=== PATIENT | female | born 1950 | race Caucasian/White ===

== ENCOUNTER 2023-12-02 11:12 | Day surgery (SDC) | payer OTHER, SELFPAY ==
--- NOTE | 2023-10-27 12:58 | CM ---
Addendum entered by Karyna Carr 10/27/23 14:43:
Call received from [id number], Camelia. She states that patient is very sedentary and isn't active. She confirmed that patient will come to their home for a week. Patient will have support from her son, [id number] and grandchildren but
will likely benefit from VN services.
Original Note:
Patient is scheduled for an elective L THR on 12/02/23. Spoke with patient prior to surgery via telephone. Introduced role of Orthopedic Navigator. Patient reports that she lives alone in a one story home. She currently functions independently. She
has no DME and has never had VN services. PCP is Dr. Leida Cisse.
Discussed orthopedic program and post surgical plans. Reviewed anticipated length of stay and that goal is for her to return home at discharge. Also reviewed outpatient PT. Patient is in agreement with tentative plan and will be going to her son's
home for a week (home is two stories with three steps to enter. She will have a first floor set up). She will go directly to outpatient PT at [facility].
Plan: Orthopedic Navigator will remain available to assist with the care of patient and will reassess discharge needs after surgery.
[2023-11-07 14:20] VITALS: BMI 22.0
[2023-11-08 09:18] LABS: Glycohemoglobin (HgbA1c) 5.3 % (4.0-5.6)
[2023-12-02] VITALS (16 sets, daily range): BP systolic 109–144; BP diastolic 39–98; BMI 22.0
[2023-12-02] MEDS: NORMOSOL-R 1000 IV ×2 (11:50→20:14)
[2023-12-02] MEDS: CELEBREX 200 MG PO (11:51)
[2023-12-02] MEDS: TYLENOL 650 MG PO (11:51)
[2023-12-02] MEDS: BACTROBAN NASAL 1 GRAM NASAL (12:13)
--- NOTE | 2023-12-02 15:34 | OR.RPT ---
Addendum entered and electronically signed by Cyrus Wang MD 12/02/23 15:42:
36 mm + 3 ceramic head
Original Note:
Operative Report
Operative Report
Anesthesia Type:
General
Operative Indications:
Left hip DJD
Operative Findings :
Same
Complications:
None
Implants:
You echo Microplasty size 10 femoral stem, +3 ceramic head, size 50 G7 acetabular cup, 25 mm and 20 mm acetabular screws
Procedure and Technique:
Left anterior total hip arthroplasty
INDICATIONS FOR PROCEDURE:
73-year-old female seen in office following failure of conservative treatment for left hip DJD. She had previously trialed and failed activity modification, anti-inflammatory medications, physical therapy. Her left hip pain was interfering with
actives of daily living. We discussed continued conservative treatment versus surgical intervention in the form of left total hip arthroplasty. We discussed risks benefits and alternatives. Discussed the usual expected perioperative postoperative
course. After discussion written informed consent was obtained for left total hip arthroplasty.
OPERATIVE PROCEDURE:
Patient was seen identified in the preoperative holding area. Operative extremities marked. All questions were addressed. She was taken the operating room where general anesthesia was administered. She was placed supine on a radiolucent or
table. We did confirm appropriate fluoroscopic images were able to be obtained prior to prepping. Operative extremity was then prepped and draped in normal sterile fashion. Preoperative antibiotics were addressed. We did give 1 g of TXA prior to
incision. Operative extremity was confirmed after timeout was performed. Standard Franks-Hinojosa approach was performed. All neurovascular structures were identified and protected. Anterior circumflex vessels were coagulated with electrocautery.
A T capsulectomy was performed. A napkin ring cut was performed and the femoral head was removed and sized. Attention was turned to the acetabulum where labral and soft tissue remnants were removed. Stepwise reaming was performed. Appropriately
sized acetabular cup was then impacted. Additional fixation was achieved with 2 acetabular screws appropriate size. Attention was then turned to the femur where capsular releases were performed in the left femoral neck was elevated anteriorly.
Stepwise broaching was performed to a size 10. Broach was confirmed to be within the femoral canal on fluoroscopic guidance. The trialing was performed and a +3 head was chosen to be the most stable in size. Trial components were removed and
final femoral stem was placed with final ceramic head. Hip was then taken through range of motion and found to be stable. Wound was then copiously irrigated with normal saline solution. Betadine solution was also used. 500 mg of vancomycin
powder was then placed in the wound. Wound was closed in layered fashion utilizing 0 Vicryl in a running locking fashion for the deep fascial layer. 2-0 Vicryl for subcutaneous layer and vinnie for skin. Aquacel dressing was placed. 1 g TXA was
then given and anesthesia was reversed. Patient was taken to PACU in stable condition. Fluoroscopic images to confirm appropriate position of the implants. Postoperative plans will include weightbearing to patient's tolerance operative extremity.
Will recommend aspirin 325 mg daily for DVT prophylaxis. Plan to see patient back 2 weeks postop.
Disposition:
PACU stable condition
--- NOTE | 2023-12-02 16:17 | SUR.PHASEI ---
1600: Derm made aware of Pt. Sinus Tachycardia, pt. not endorsing any pain at this time, denies chest pain, fluttering of the heart, light headedness or anyother associated symptom. MD request to keep eyes on it and make aware of any further
changes
--- NOTE | 2023-12-02 17:57 | CON.HOSP ---
Family Physician
-
Family Physician: Leida Cisse
Chief Complaint
-
Sinus Tachy
History of Present Illness
73F Asthma Generalized Anxiety Cervical Spine fusion OA Left Hip DJD presented for elective left hip replacement due to failed conservative treatment, significant interference with activities of daily living. Hospitalist consulted due to sinus
tachycardia noted post-op high 140s since improved to low 120s, blood pressure stable. No acute distress. Stable respiratory status on room air. Awake Alert Conversant Coherent. Otherwise appears comfortable Denied chest pain palpitations.
Notably patient was also sinus tachy 120s prior to start of procedure. Patient also relates a remote hx of DVT treated with Eliquis since discontinued.
Medical History
Past Medical History
Past Medical History: Reports Other (as above)
Past Surgical History: Reports Other (as isela)
Social History
Tobacco: Non-smoker
Alcohol: None
Drug: None
Allergies / Home Medications
Allergies reflects when Allergies were last updated in [facility].
Home Medications with original date entered in [facility]
Allergy/Medication List:
Allergies
Allergy/AdvReac Type Severity Reaction Status Date / Time
No Known Allergies Allergy Verified 11/26/23 09:06
Home Medications
Bifidobacterium infantis 4 mg capsule (Align) 4 mg PO DAILY 10/30/17
albuterol sulfate 90 mcg/actuation aerosol inhaler 2 puff inhalation R QID PRN sob 10/30/17
fluticasone furoate 200 mcg-vilanterol 25 mcg/dose inhalation powder (Breo Ellipta) 1 ea inhalation DAILY 10/30/17
fluticasone propionate 50 mcg/actuation nasal spray,suspension 2 spray intranasal DAILYPRN PRN allergies 10/30/17
tramadol 50 mg tablet 50 mg PO QID 10/30/17
fexofenadine-pseudoephedrine ER 180 mg-240 mg tablet,ext.release 24 hr (Tereza-D 24 Hour) 1 ea PO QPM 05/03/19
dextromethorphan-guaifenesin 30 mg-600 mg tablet extended caoqedn33 hr (Mucinex DM) 1 ea PO DAILY 11/02/21
pantoprazole 40 mg tablet,delayed release 40 mg PO QPM 11/02/21
azelastine 137 mcg (0.1 %) nasal spray 2 spray intranasal DAILY 11/26/23
fluoxetine 40 mg capsule 40 mg PO DAILY 11/26/23
furosemide 20 mg tablet 20 mg PO DAILY 11/26/23
gabapentin 400 mg capsule 400 mg PO HS 11/26/23
tramadol 200 mg tablet,extended release 24 hr 200 mg PO PRN PRN pain 11/26/23
Review of Systems
-
A 12 point Review of Systems was completed except as noted: Yes
Constitutional: Reports Other (As below)
Physical Exam
Vital Signs
Vital Signs
Temp Pulse Resp BP Pulse Ox
98.3 F 133 20 134/98 99
12/02/23 15:55 12/02/23 16:45 12/02/23 16:45 12/02/23 16:45 12/02/23 16:45
Physical Exam
General: Other (As below)
Impression / Plan
-
ROS
General: Denies fever chills night sweats unexpected weight loss
Neuro: Denies seizure shaking loss of consciousness dizziness vertigo
Psych: denies depression hallucinations confusion manic episodes
Endocrine: Denies polyuria polydipsia polyphagia heat/cold intolerance
HEENT: Denies blindness visual disturbances epistaxis
Pulmonary: denies coughing hemoptysis sneezing sob dyspnea on exertion
Cardiovascular: denies chest pain palpitations leg swelling
Hematology: denies signs symptoms of anemia easy bruising/bleeding
Gastrointestinal: denies nausea vomiting diarrhea constipation hematemesis hematochezia melena
Genito-Urinary: denies retention incontinence dysuria
Musculoskeletal: denies joint pain weakness
Dermatology: denies rash laceration bruising
Physical Exam
General: No pallor, cyanosis, or jaundice.
HEENT: Throat clear. PERRLA Normocephalic atraumatic, pale palpebral conjunctiva
NECK: Supple. No JVD Carotid Bruits
RESPIRATORY: Lungs clear to auscultation. No crackles wheezes stridor
CVS: S1, S2 normal. RRR. No murmur, rub or gallop.
ABDOMEN: Soft, non-tender. No distension. BS+/normal.
EXTREMITIES: No peripheral cyanosis or edema. no calf tenderness
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
IMPRESSION:
73F Asthma Generalized Anxiety Cervical Spine fusion OA Left Hip DJD presented for elective left hip replacement due to failed conservative treatment, significant interference with activities of daily living. Hospitalist consulted due to sinus
tachycardia noted post-op high 140s since improved to low 120s, blood pressure stable. No acute distress. Stable respiratory status on room air. Awake Alert Conversant Coherent. Otherwise appears comfortable Denied chest pain palpitations.
Notably patient was also sinus tachy 120s prior to start of procedure. Patient also relates a remote hx of DVT treated with Eliquis since discontinued.
PLAN:
#Sinus Tachycardia
monitor on telemetry
repeat EKG in AM
IVF bolus 500 cc once, possible tachycardia d/t hypovolemia
start metoprolol 12.5 mg BID w/ holding parameters
Iv Lopressor 5 mg Q6hprn persistent HR>120s
Check CBC, type and screen in case significant anemia
Transfuse if Hgb<8
TSH reflex T4
#Elevated D-Dimer possibly 2/2 to surgery as oppose to VTE
stable respiratory status on room air, no significant calf tenderness noted
Check CT chest PE study and Venous Duplex (expedite CT study if patient develops SOB, chest pain, increasing Oxygen requirement)
cont ASA DVT ppx as per primary ortho for now
#Asthma
cont home prn albuterol
home Breo Ellipta converted to equivalent as per primary
#Lt Hip DJD s/p arthroplasty 12/01
post-op mgmt, pain control, as per primary ortho except scheduled Tylenol discontinued d/t severe transaminitis possibly related to surgery/anesthesia
#severe transaminitis possibly related to surgery/anesthesia
Trend LFTs
avoid/minimize use hepatotoxic agents
Tylenol discontinued as above
#Troponin elevation likely non-NH related
chest pain free
Initial troponin 0.066, trend to peak
#GERD
cont PPI
dvt ppx ASA as primary ortho
gi ppx protonix
Will continue to follow
I spent a total of 75 minutes with the patient or on the floor. More than 50% of this time involved counseling and coordination of care.
[2023-12-02] MEDS: NSS 500 IV (18:56)
[2023-12-02 19:09] LABS: INR 1.33; PT 16.3 Sec (11.4-14.6)
[2023-12-02 19:10] LABS: ALT (SGPT) 451 U/L (0-35); APTT 30.8 Sec (23.4-35.0); Albumin 3.2 g/dl (3.5-5.0); Alkaline Phosphatase 117 U/L (38-126); Blood Urea Nitrogen 11 mg/dl (7-17); Calcium 7.6 mg/dl (8.4-10.2); Carbon Dioxide 24 mmol/L (22-30); Chloride 105 mmol/L (98-107); Estimated Creatinine Clearance 69 ml/min; Glucose 134 mg/dl (70-99); Magnesium 2.1 mg/dl (1.6-2.3); Phosphorus 3.7 mg/dl (2.5-4.5); Potassium 4.7 mmol/L (3.5-5.1); Sodium 134 mmol/L (135-145); Total Protein 5.2 g/dl (6.3-8.2); eGFR > 60.00
[2023-12-02 19:14] LABS: Hematocrit 33.5 % (37.0-47.0); Hemoglobin 11.3 g/dL (12.0-16.0); Mean Corp Hgb Conc. 33.7 g/dL (33.0-37.0); Mean Corpuscular Hgb 31.8 pg (27.0-31.0); Mean Corpuscular Volume 94.4 fL (81.0-99.0); Mean Platelet Volume 10.5 fL (7.4-10.4); Platelet Count 131 10^3/uL (130-400); Red Blood Cell Count 3.55 10^6/uL (4.20-5.40); Red Cell Dist. Width 11.9 % (11.5-14.5); White Blood Cell Count 6.7 10^3/uL (4.8-10.8)
[2023-12-02] MEDS: ULTRAM PO ×2 (19:14)
--- NOTE | 2023-12-02 19:20 | PTCARENOTE ---
Received pt. to 2104 from PACU and placed on tele. Tachy around 110s, denies chest pain, SOB, nausea, or pain. Even and unlabored breathing on RA, VSS, L hip aquacell intact with scant serosanguineous drainage present, pulses strong bilaterally,
good ROM, denies numbness or tingling. Critical AST and troponin reported to Dr. Zaman via TT. Pt and son oriented to room and unit policies, bed locked and in lowest position, side rails in place, call light within reach, questions/concerns
addressed at time of assessment. Will continue to monitor.
[2023-12-02 19:21] LABS: AST (SGOT) 1242 U/L (14-36)
[2023-12-02 19:23] LABS: Troponin I 0.066 ng/ml
[2023-12-02 19:39] LABS: TSH Reflex To Free T4 2.03 uIU/ml (0.47-4.68)
[2023-12-02] MEDS: COLACE 100 MG PO (20:09)
[2023-12-02] MEDS: SENOKOT 17.2 MG PO (20:09)
[2023-12-02] MEDS: ASPIRIN 325 MG PO (20:10)
[2023-12-02] MEDS: PROTONIX 40 MG PO (20:10)
[2023-12-02] MEDS: LOPRESSOR 12.5 MG PO (20:10)
[2023-12-02] MEDS: ANCEF 5 IV (20:10)
[2023-12-02] MEDS: ULTRAM 50 MG PO (20:15)
[2023-12-02] MEDS: DECADRON 4 MG PO (20:15)
[2023-12-02] MEDS: TORADOL 10 MG IV (20:16)
--- NOTE | 2023-12-02 21:12 | W.PN.UPDATE ---
Update Note
Progress Note Update
In lieu of severe transaminitis/liver dysfunction
per discussion with pharmacy
-aspirin discontinued in favor of heparin dvt ppx
-home prozac cut in half to 20 mg instead of 40 daily
[2023-12-02] MEDS: SYMBICORT 160/4.5 MCG INHALER 2 PUFF INH (21:23)
[2023-12-02] MEDS: BACTROBAN 2% OINTMENT 1 APPLIC NASAL (22:05)
[2023-12-02] MEDS: NEURONTIN 400 MG PO (22:06)
--- NOTE | 2023-12-02 22:30 | PTCARENOTE ---
Noted worsening erythema and patch of eccymosis to L inner thigh. Pt. states hx of blood clot in L thigh 5 years ago. US ordered, called US personnel and they stated testing will take place in AM. Dr. Zaman made aware, okay to wait until AM as long
as respiratory status is stable. Will monitor.
[2023-12-02] MEDS: HEPARIN 5000 UNITS SC (23:26)
[2023-12-03] VITALS (9 sets, daily range): BP systolic 92–128; BP diastolic 43–70; PULSE 82–104; O2SAT 97–98
[2023-12-03] MEDS: ANCEF 5 IV (03:34)
--- NOTE | 2023-12-03 07:16 | W.PN.HOSP.TC ---
Today's Communication/Plan
-
Pain Control
PT/OT
Cardio eval
Metoprolol w/ holding parameters
Post-op mgmt as per primary Ortho
Assessment / Plan
Assessment / Plan
Physical Exam
General: No pallor, cyanosis, or jaundice.
HEENT: Throat clear. PERRLA Normocephalic atraumatic, pale palpebral conjunctiva
NECK: Supple. No JVD Carotid Bruits
RESPIRATORY: Lungs clear to auscultation. No crackles wheezes stridor
CVS: S1, S2 normal. RRR. No murmur, rub or gallop.
ABDOMEN: Soft, non-tender. No distension. BS+/normal.
EXTREMITIES: No peripheral cyanosis or edema. no calf tenderness
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
IMPRESSION:
73F Asthma Generalized Anxiety Cervical Spine fusion OA Left Hip DJD presented for elective left hip replacement due to failed conservative treatment, significant interference with activities of daily living. Hospitalist consulted due to sinus
tachycardia noted post-op high 140s since improved to low 120s, blood pressure stable. No acute distress. Stable respiratory status on room air. Awake Alert Conversant Coherent. Otherwise appears comfortable Denied chest pain palpitations.
Notably patient was also sinus tachy 120s prior to start of procedure. Patient also relates a remote hx of DVT treated with Eliquis since discontinued.
PLAN:
#Sinus Tachycardia
since improved
monitor on telemetry
repeat AM EKG 12/02 appreciated NSR
Metoprolol 12.5 daily XL w/ holding parameters
Iv Lopressor 5 mg Q6hprn persistent HR>120s
TSH wnl
#Elevated D-Dimer likely 2/2 to surgery as oppose to VTE
CT chest Venous Duplex neg PE/DVT
#Asthma
cont home prn albuterol
home Breo Ellipta converted to equivalent as per primary
#Lt Hip DJD s/p arthroplasty 12/01
post-op mgmt, pain control, as per primary ortho
#severe transaminitis possibly related to surgery/anesthesia
Trend LFTs improving
avoid/minimize use hepatotoxic agents
Scheduled Tylenol discontinued
#Troponin elevation suspect non-ID related
chest pain free
Initial troponin 0.066, trended to peak 1.180 since trended down
Agree Cardio eval
#GERD
cont PPI
PT/OT home health
dvt ppx Eliquis 2.5 mg BID as primary ortho
gi ppx protonix
Will continue to follow
I spent a total of 55 minutes with the patient or on the floor. More than 50% of this time involved counseling and coordination of care.
Anticipated Discharge: Within 24 hours
Subjective/Interval History
-
Date of Service: December 03, 2023
Seen and examined at bedside in no acute distress sitting up comfortably in chair. Reports overall feeling well. Son present during evaluation.
Objective Data
-
Labs:
Laboratory Results
12/02/23 12/03/23
18:48 06:00
WBC 6.7 Pending
Hgb 11.3 L Pending
Hct 33.5 L Pending
Plt Count 131 Pending
PT 16.3 H
INR 1.33
APTT 30.8
Sodium Pending
Potassium Pending
Chloride Pending
Carbon Dioxide Pending
BUN Pending
Creatinine Pending
Glucose Pending
Calcium Pending
Total Bilirubin Pending
AST 1242 H* Pending
ALT Pending
Alkaline Phosphatase Pending
Vital Signs:
Vital Signs
Temp Pulse Resp BP Pulse Ox
97.5 F 86 16 112/70 93
12/03/23 03:05 12/03/23 03:05 12/03/23 03:05 12/03/23 03:05 12/03/23 03:05
I&O
12/02/23 12/03/23 12/04/23
06:59 06:59 06:59
Intake Total 2480 / 2480
Output Total 1400 / 1400
Balance 1080 / 1080
[2023-12-03] MEDS: SYMBICORT 160/4.5 MCG INHALER 2 PUFF INH ×2 (08:28→20:41)
--- NOTE | 2023-12-03 08:37 | W.PN.ORTHO ---
Addendum entered and electronically signed by Cyrus Wang MD 12/03/23 09:11:
Entered in error. Wrong patient.
Original Note:
Today's Communication / Plan
-
73 yo F POD 1 s.p ORIF R periprosthetic humerus fracture. Block appears to still be working and unable to accurately assess distal motor and sensation function
NWB RUE in sling
PT/OT eval
Will see again to reasses distal nerve function particularly radial nerve
Can hopefully plan for discharge later today
Subjective
.
.:
Patient resting comfortably in bed this morning. Reports no pain at all. She reports no sensation and states her arm and hand feel heavy.
Vital Signs and Labs
.
Vital Signs and Labs:
Temp Pulse Resp BP Pulse Ox
98.8 F 95 16 110/43 99
12/03/23 07:20 12/03/23 08:30 12/03/23 08:30 12/03/23 07:20 12/03/23 08:30
PT 16.3 Sec (11.4-14.6) H 12/02/23 18:48
INR 1.33 12/02/23 18:48
Physical Exam
-
MSK RUE
Dressing with minimal drainage
Sling in place
SILT in axillary nerve distribution, no sensation in forearm or hand
Unable to move fingers, thumb or wrist
BCR
[2023-12-03] MEDS: BACTROBAN 2% OINTMENT 1 APPLIC NASAL ×2 (08:38→20:12)
[2023-12-03] MEDS: DECADRON 4 MG PO ×2 (08:39→20:12)
[2023-12-03] MEDS: COLACE 100 MG PO ×2 (08:39→20:12)
[2023-12-03] MEDS: SENOKOT 17.2 MG PO ×2 (08:40→20:12)
[2023-12-03] MEDS: PROZAC 20 MG PO (08:40)
[2023-12-03] MEDS: ULTRAM 50 MG PO ×4 (08:40→22:47)
[2023-12-03] MEDS: MOBIC 15 MG PO (08:40)
[2023-12-03] MEDS: MUCINEX 600 MG PO (08:40)
[2023-12-03] MEDS: VISBIOME 1 CAP PO (08:40)
[2023-12-03] MEDS: HEPARIN 5000 UNITS SC (08:41)
[2023-12-03] MEDS: TORADOL 10 MG IV ×2 (08:41→20:13)
[2023-12-03] MEDS: TOPROL XL PO (08:43)
--- NOTE | 2023-12-03 09:27 | CM ---
Addendum entered by Karyna Carr 12/03/23 12:28:
Patient is not medically cleared for discharge. Patient and son, Linwood, updated and discharge plans reviewed with son. Mary Ann also updated.
Fax for [facility]: [phone].
Original Note:
Reviewed chart and held rounds with PT, OT and nursing. Patient admitted as planned for elective L THR. Met with patient at bedside. Confirmed information previously obtained for assessment. Also discussed discharge plans. The plan is for patient to
go to her son's home at discharge. Her son and his family will be there to provide support. Reviewed VN services including start of care (tentatively 12/03), services to be ordered (PT, OT,SN) and frequency/duration of services. Options list provided
and PAC data reviewed. Patient selects [facility].
Patient has a cane at home. She will need a rolling walker issued at discharge; script obtained and given to PT.
VN referral was completed and sent to [facility] through [facility] with request for start of care on 12/03. Confirmation received of their ability to accept case. data input clerk to fax discharge instructions to [facility] when complete.
Patient will use [facility] pharmacy for discharge prescriptions.
--- NOTE | 2023-12-03 10:53 | W.PN.CD ---
Addendum entered and electronically signed by Shiv Bangura MD 12/03/23 14:43:
Patient seen and examined in collaboration with SHOT DROPPER; agree with below.
-73-year-old female with no previous cardiac history, but treated hepatitis C with residual hepatic fibrosis and asthma admitted for elective left total hip replacement; Cardiology consulted for elevated cardiac troponin.
-The patient was tachycardic (sinus tachycardia) to 140s periprocedurally; LFTs also elevated.
-Patient denies any anginal symptoms.
-Troponin elevation is most likely secondary to either demand ischemia (type II PR) or acute nonischemic myocardial injury in the setting of noncardiac surgery.
-Will obtain an echocardiogram today to thoroughly assess LVEF and overall cardiac function; if unremarkable, outpatient stress testing is recommended.
-Can continue Toprol-XL 12.5 mg daily; Cardiology can reevaluate as outpatient.
Original Note:
Today's Communication / Plan
-
Trend troponin
Follow telemetry
Impression / Plan
-
BACKGROUND: 73F with asthma, prior DVT (completed apixaban), treated hepatitis C, and GERD who presented for orthopedic surgery. She was tachycardic. An elevated D-dimer led to a PE study which was negative. Her troponin is abnormal and she has
severe transaminitis.
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 Lutz (PRN)
Left ZOYA on 12/02/[address] Wang
Abnormal troponin, type unknown
-Denies anginal symptoms
-Update EKG
-Trend to peak, currently 1.180
Sinus tachycardia, follow telemetry
Transaminitis, severe, LFTs are pending
Hepatitis C, treated with Harvoni
Hepatic fibrosis, follows with Dr. Swanson
SUBJECTIVE:
She endorses left hip discomfort. She is having no chest pain, shortness of breath, nor dizziness.
Physical Exam
Vital Signs/Labs
Vital Signs
Temp Pulse Resp BP Pulse Ox
98.8 F 95 16 110/43 99
12/03/23 07:20 12/03/23 08:30 12/03/23 08:30 12/03/23 07:20 12/03/23 08:30
PT 16.3 Sec (11.4-14.6) H 12/02/23 18:48
INR 1.33 12/02/23 18:48
APTT 30.8 Sec (23.4-35.0) 12/02/23 18:48
Magnesium 2.1 mg/dl (1.6-2.3) 12/02/23 18:48
LAB Results
12/02/23 12/03/23 12/03/23
18:48 00:51 01:30
Troponin I 0.066 H* 1.180 H* D Cancelled
Physical Exam
Constitutional: No acute distress and Comfortable
EENT: Anicteric and Moist mucous membranes
Cardiovascular: Rhythm & rate is regular, Pedal edema is absent and S1S2 is normal
Respiratory: Respiratory effort normal and Lungs clear to auscul.
GI: Soft, Distention absent, Flat, Non tender and Normal bowel sounds
Neuro/Psych: AO x 3
Other: Skin (Warm and dry, Aquacel to left hip)
Data Reviewed
-
Date of Service: December 03, 2023
EKG: Report Reviewed by me
Labs: Labs Reviewed by me
Old Records: Reviewed
[2023-12-03 11:44] LABS: Hematocrit 30.6 % (37.0-47.0); Hemoglobin 10.1 g/dL (12.0-16.0); Mean Corpuscular Hgb 32.1 pg (27.0-31.0); Mean Corpuscular Volume 97.1 fL (81.0-99.0); Mean Platelet Volume 10.6 fL (7.4-10.4); Platelet Count 144 10^3/uL (130-400); Red Blood Cell Count 3.15 10^6/uL (4.20-5.40); Red Cell Dist. Width 12.5 % (11.5-14.5); White Blood Cell Count 12.9 10^3/uL (4.8-10.8)
[2023-12-03 12:17] LABS: AST (SGOT) 457 U/L (14-36); Alkaline Phosphatase 116 U/L (38-126); Blood Urea Nitrogen 13 mg/dl (7-17); Calcium 7.9 mg/dl (8.4-10.2); Carbon Dioxide 21 mmol/L (22-30); Chloride 106 mmol/L (98-107); Estimated Creatinine Clearance 52 ml/min; Glucose 112 mg/dl (70-99); Magnesium 2.1 mg/dl (1.6-2.3); Phosphorus 3.9 mg/dl (2.5-4.5); Sodium 136 mmol/L (135-145); Total Bilirubin 0.8 mg/dl (0.2-1.3); Total Protein 4.9 g/dl (6.3-8.2); eGFR > 60.00
[2023-12-03 12:18] LABS: Troponin I 0.816 ng/ml
[2023-12-03 12:24] LABS: ALT (SGPT) 317 U/L (0-35)
--- NOTE | 2023-12-03 13:00 | W.PN.ORTHO ---
Today's Communication / Plan
-
d/c when stable
Assessment
.
Distal Motor Intact: Yes
Dressing:
Clean, dry and intact.
Assessment:
Elevated troponin/abnormal EKG-cardiology following-asymptomatic re anginal symptoms
Sinus tachycardia-consider BB if not contraindicated due to asthma
-tele
Hx DVT-current Duplex and CT/PE negative for clot--change DVT ppx to Eliquis 2.5mg bid dosing
Hep C-s/p Harvoni
Hepatic fibrosis
Elevated transaminase
-Tylenol d/c--avoid hepatotoxic agents
Asthma-sats stable on RA-continue INH
GERD-PPI
Depression/anxiety
Osteoporosis-check Vit D level
Plan
.
Surgery / Date: L ZOYA Dia 12/02/23
DVT Prophylaxis: Other (Eliquis)
Activity:
Out of bed.
PT/OT
Subjective
.
.:
Patient resting comfortably.
Vital Signs and Labs
.
Vital Signs and Labs:
Lab Results
12/03/23 11:06
12/03/23 11:06
Temp Pulse Resp BP Pulse Ox
98.9 F 98 18 112/52 98
12/03/23 11:10 12/03/23 11:10 12/03/23 11:10 12/03/23 11:10 12/03/23 11:10
PT 16.3 Sec (11.4-14.6) H 12/02/23 18:48
INR 1.33 12/02/23 18:48
Physical Exam
-
HEENT: No pallor, cyanosis, or jaundice. Throat clear.
NECK: Supple. No JVD.
RESPIRATORY: Lungs clear to auscultation but diminished
CVS: S1, S2 normal. RRR.� No murmur, rub or gallop.
ABDOMEN: Soft, non-tender. No distension. BS+/normal.
EXTREMITIES: strength equal, no calf pain with palpation
RN MEDICAL INPATIENT SERVICES: AOx3. No focal deficits. 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
[2023-12-03 15:20] LABS: Vitamin D, 25-OH*** 22.7 ng/mL (30-80)
[2023-12-03] MEDS: PROTONIX 40 MG PO (18:38)
[2023-12-03] MEDS: ELIQUIS 2.5 MG PO (20:12)
[2023-12-03 20:45] LABS: Urine Albumin Negative (Neg - Trace); Urine Bilirubin Negative (Negative); Urine Character Slightly Cloudy (Clear); Urine Color Yellow; Urine Glucose Negative (Negative); Urine Ketone Trace (Negative); Urine Leukocyte 2+ (Negative); Urine Nitrite Negative (Negative); Urine Occult Blood Negative (Negative); Urine Specific Gravity 1.015 (<1.030); Urine Urobilinogen Negative (Neg - 1+)
[2023-12-03 20:55] LABS: Urine Squamous Cell 26-30 /LPF (Few)
[2023-12-03 20:56] LABS: Urine Red Blood Cell 0-2 /HPF (0-2); Urine White Cell 50-60 /HPF (0-5)
[2023-12-03 20:57] LABS: Urine Bacteria Moderate (Negative)
[2023-12-03] MEDS: NEURONTIN 400 MG PO (22:47)
[2023-12-03] MEDS: ROXICODONE 5 MG PO (23:49)
[2023-12-04 03:10] VITALS: BP 113/63
[2023-12-04 06:28] LABS: Hematocrit 26.4 % (37.0-47.0); Hemoglobin 8.6 g/dL (12.0-16.0); Mean Corp Hgb Conc. 32.6 g/dL (33.0-37.0); Mean Corpuscular Volume 95.3 fL (81.0-99.0); Red Blood Cell Count 2.77 10^6/uL (4.20-5.40); Red Cell Dist. Width 12.3 % (11.5-14.5); White Blood Cell Count 7.3 10^3/uL (4.8-10.8)
--- NOTE | 2023-12-04 06:48 | W.PN.HOSP.TC ---
Today's Communication/Plan
-
Iron Supplementation
Vit B12 supplementation
Medically stable, continue management as per primary ortho, Hospitalist service will sign off. Please re-consult if necessary.
Assessment / Plan
Assessment / Plan
Physical Exam
General: No pallor, cyanosis, or jaundice.
HEENT: Throat clear. PERRLA Normocephalic atraumatic, pale palpebral conjunctiva
NECK: Supple. No JVD Carotid Bruits
RESPIRATORY: Lungs clear to auscultation. No crackles wheezes stridor
CVS: S1, S2 normal. RRR. No murmur, rub or gallop.
ABDOMEN: Soft, non-tender. No distension. BS+/normal.
EXTREMITIES: No peripheral cyanosis or edema. no calf tenderness
VP TREASURER: AOx3
IMPRESSION:
73F Asthma Generalized Anxiety Cervical Spine fusion OA Left Hip DJD presented for elective left hip replacement due to failed conservative treatment, significant interference with activities of daily living. Hospitalist consulted due to sinus
tachycardia noted post-op high 140s since improved to low 120s, blood pressure stable. No acute distress. Stable respiratory status on room air. Awake Alert Conversant Coherent. Otherwise appears comfortable Denied chest pain palpitations.
Notably patient was also sinus tachy 120s prior to start of procedure. Patient also relates a remote hx of DVT treated with Eliquis since discontinued.
PLAN:
#Sinus Tachycardia
since improved
monitor on telemetry
repeat AM EKG 12/02 appreciated NSR
Metoprolol 12.5 daily XL w/ holding parameters
Iv Lopressor 5 mg Q6hprn persistent HR>120s
TSH wnl
#Elevated D-Dimer likely 2/2 to surgery as oppose to VTE
CT chest Venous Duplex neg PE/DVT
#Asthma
cont home prn albuterol
home Breo Ellipta converted to equivalent as per primary
#Lt Hip DJD s/p arthroplasty 12/01
post-op mgmt, pain control, as per primary ortho
#severe transaminitis possibly related to surgery/anesthesia
Trend LFTs improving
avoid/minimize use hepatotoxic agents
Scheduled Tylenol discontinued
#Troponin elevation suspect non-OK related
chest pain free
Initial troponin 0.066, trended to peak 1.180 since trended down
Cardio eval appreciated
#Anemia likely multifactorial
#acute blood loss
#underlying Iron Deficiency Anemia
#Anemia of Chronic Disease
#Vit B12 deficiency
Hgb trending up
agree IV iron supplementation and prescription oral iron supplementation on discharge as per primary orthopedic
recommend once IM B12 1000 mcg injection then PO 1000 mcg Vit B12 daily on discharge
#GERD
cont PPI
PT/OT home health
dvt ppx Eliquis 2.5 mg BID as primary ortho
gi ppx protonix
Medically stable, continue management as per primary ortho, Hospitalist service will sign off. Please re-consult if necessary.
I spent a total of 50 minutes with the patient or on the floor. More than 50% of this time involved counseling and coordination of care.
Anticipated Discharge: Today
Subjective/Interval History
-
Date of Service: December 04, 2023
No acute distress sitting up comfortably in chair. Denies any new acute issues at this time. Overall reports feeling well.
Objective Data
-
Labs:
Laboratory Results
12/04/23
04:34
WBC 7.3
Hgb 8.6 L
Hct 26.4 L
Plt Count Pending
Sodium Pending
Potassium Pending
Chloride Pending
Carbon Dioxide Pending
BUN Pending
Creatinine Pending
Glucose Pending
Calcium Pending
Total Bilirubin Pending
AST Pending
ALT Pending
Alkaline Phosphatase Pending
Vital Signs:
Vital Signs
Temp Pulse Resp BP Pulse Ox
98.7 F 97 16 113/63 94
12/04/23 03:10 12/04/23 03:10 12/04/23 03:10 12/04/23 03:10 12/04/23 03:10
I&O
12/02/23 12/03/23 12/04/23
06:59 06:59 06:59
Intake Total 2480 / 2480 1200 / 1200
Output Total 1400 / 1400
Balance 1080 / 1080 1200 / 1200
[2023-12-04 06:52] LABS: ALT (SGPT) 186 U/L (0-35); AST (SGOT) 156 U/L (14-36); Albumin 2.7 g/dl (3.5-5.0); Alkaline Phosphatase 98 U/L (38-126); Blood Urea Nitrogen 15 mg/dl (7-17); Calcium 7.8 mg/dl (8.4-10.2); Carbon Dioxide 23 mmol/L (22-30); Chloride 103 mmol/L (98-107); Estimated Creatinine Clearance 69 ml/min; Glucose 134 mg/dl (70-99); Magnesium 2.2 mg/dl (1.6-2.3); Phosphorus 3.7 mg/dl (2.5-4.5); Potassium 4.6 mmol/L (3.5-5.1); Sodium 132 mmol/L (135-145); Total Bilirubin 0.7 mg/dl (0.2-1.3); Total Protein 4.6 g/dl (6.3-8.2); eGFR > 60.00
[2023-12-04 07:51] VITALS: BP 111/47
[2023-12-04] MEDS: SYMBICORT 160/4.5 MCG INHALER 2 PUFF INH (07:53)
[2023-12-04] MEDS: TOPROL XL 12.5 MG PO (07:56)
[2023-12-04] MEDS: MUCINEX 600 MG PO (07:56)
[2023-12-04] MEDS: VISBIOME 1 CAP PO (07:56)
[2023-12-04] MEDS: ELIQUIS 2.5 MG PO (07:56)
[2023-12-04] MEDS: ULTRAM 50 MG PO ×2 (07:57→12:58)
[2023-12-04] MEDS: MOBIC 15 MG PO (07:57)
[2023-12-04] MEDS: COLACE 100 MG PO (07:57)
[2023-12-04] MEDS: DECADRON 4 MG PO (07:57)
[2023-12-04] MEDS: SENOKOT 17.2 MG PO (07:57)
[2023-12-04] MEDS: DRISDOL (VITAMIN D2) 50000 UNITS PO (07:57)
[2023-12-04] MEDS: PROZAC 20 MG PO (07:57)
--- NOTE | 2023-12-04 09:04 | CM ---
Addendum entered by Karyna Carr 12/04/23 13:23:
Met with patient's [id number], Josette. Update provided as to current functional status and reviewed VN services. Discussed medical follow ups and [id number] is aware and states that she will call for hematology appointment this afternoon.
Original Note:
Reviewed chart and held rounds with PT, OT and nursing. Met with patient at bedside. Discussed discharge plans. The plan continues to be for patient to go to her son's home at discharge. Her son and his family will be there to provide support.
Reviewed VN services including start of care (tentatively 12/04), services ordered (PT, OT, SN) and frequency/duration of services. Patient selects [facility].
Patient has a cane at home and was issued a rolling walker.
toll settlement clerk to fax discharge instructions to [facility] when complete.
Patient will use [facility] pharmacy for discharge prescriptions.
--- NOTE | 2023-12-04 10:25 | W.PN.CD ---
Today's Communication / Plan
-
-Troponin elevation is most likely secondary to either demand ischemia (type II [place]) or acute nonischemic myocardial injury in the setting of noncardiac surgery.
-Echocardiogram yesterday revealed normal LVEF of 55-60% with no regional wall motion abnormalities; moderate tricuspid regurgitation was noted.
-Outpatient stress test recommended.
-Continue Toprol-XL 12.5 mg once daily.
Impression / Plan
-
BACKGROUND: 73F with asthma, prior DVT (completed apixaban), treated hepatitis C, and GERD who presented for orthopedic surgery. She was tachycardic. An elevated D-dimer led to a PE study which was negative. Her troponin is abnormal and she has
severe transaminitis.
Rotary Planer Set Up Operator: Dr. Lutz (PRN)
Left [facility]OYA on 12/02/[address] Wang
Abnormal troponin - peak 1.180
-Patient denies any anginal symptoms.
-Troponin elevation is most likely secondary to either demand ischemia (type II AZ) or acute nonischemic myocardial injury in the setting of noncardiac surgery.
-Echocardiogram yesterday revealed normal LVEF of 55-60% with no regional wall motion abnormalities; moderate tricuspid regurgitation was noted.
-Outpatient stress test recommended.
Sinus tachycardia
-Continue Toprol-XL 12.5 mg once daily.
Transaminitis, severe, LFTs are trending down
Hepatitis C, treated with Harvoni
Hepatic fibrosis, follows with Dr. Swanson
SUBJECTIVE:
No major events overnight. No cardiac complaints this a.m.
Physical Exam
Vital Signs/Labs
Vital Signs
Temp Pulse Resp BP Pulse Ox
97.8 F 93 16 111/47 97
12/04/23 07:51 12/04/23 07:56 12/04/23 07:54 12/04/23 07:56 12/04/23 07:54
12/04/23 04:34
PT 16.3 Sec (11.4-14.6) H 12/02/23 18:48
INR 1.33 12/02/23 18:48
APTT 30.8 Sec (23.4-35.0) 12/02/23 18:48
Magnesium 2.2 mg/dl (1.6-2.3) 12/04/23 04:34
LAB Results
12/02/23 12/03/23 12/03/23
18:48 00:51 01:30
Troponin I 0.066 H* 1.180 H* D Cancelled
12/03/23 12/03/23
11:06 17:00
Troponin I 0.816 H* Cancelled
Physical Exam
Constitutional: No acute distress and Comfortable
EENT: Anicteric
Cardiovascular: Rhythm & rate is regular, Systolic murmur absent, Rhythm/rate is irregular, Pedal edema present (trace) and S1S2 is normal
Respiratory: Respiratory effort normal and Lungs clear to auscul.
GI: Soft
Neuro/Psych: AO x 3
Other: Skin (Warm, dry, intact)
Data Reviewed
-
Date of Service: December 04, 2023
EKG: Tracing Personally Visualized and interpreted (Telemetry: Sinus rhythm)
Labs: Labs Reviewed by me
[2023-12-04 10:26] LABS: Total Iron Binding Capacity 162 ug/dl (265-497)
[2023-12-04 10:27] LABS: Iron < 20 ug/dl (37-170)
[2023-12-04 10:32] LABS: Hemoglobin 9.3 g/dL (12.0-16.0)
[2023-12-04 11:02] LABS: Ferritin 55.4 ng/ml (11.1-264.0)
[2023-12-04 11:16] LABS: Vitamin B12 240 pg/ml (239-931)
[2023-12-04 11:18] VITALS: BP 117/61
--- NOTE | 2023-12-04 11:46 | W.PN.ORTHO ---
Today's Communication / Plan
-
d/c
Assessment
.
Distal Motor Intact: Yes
Dressing:
Clean, dry and intact.
Assessment:
Elevated troponin/abnormal EKG toby-operatively likely due to demand ischemia/Type 2 LA---cardiology appreciated--remained asymptomatic re anginal symptoms
--Nuclear stress OP-statin contraindicated due to liver disease, 81mg asa when hgb improves given need for Eliquis and coagulopathy due to liver
Sinus tachycardia-f/u OP-rates came down and may be due to event with exacerbated anemia-BB not ideal due to asthma-defer to cards
--stable on tele
Chronic anemia with iron deficiency
Acute blood loss anemia
-IV iron today and d/c on oral with hematology evaluation for underlying anemia
Hx DVT-current Duplex and CT/PE negative for clot--change DVT ppx to Eliquis 2.5mg bid dosing
Hep C-s/p Harvoni
Hepatic fibrosis
Elevated transaminase
-Tylenol d/c--avoid hepatotoxic agents
Asthma-sats stable on RA-continue INH
GERD-PPI
Depression/anxiety
Osteoporosis-Vit D level low-+ Ergocalciferol Rx
Plan
.
Surgery / Date: L ZOYA Dr. Wang 12/02/23
DVT Prophylaxis: Other (Eliquis 2.5mg bid dosing)
Activity:
Out of bed.
PT/OT
Discharge Plan: Home w/ VN
Subjective
.
.:
Patient resting comfortably. Feels great
Vital Signs and Labs
.
Vital Signs and Labs:
Lab Results
12/04/23 09:58
12/04/23 04:34
Temp Pulse Resp BP Pulse Ox
98.4 F 95 16 117/61 95
12/04/23 11:18 12/04/23 11:18 12/04/23 11:18 12/04/23 11:18 12/04/23 11:18
PT 16.3 Sec (11.4-14.6) H 12/02/23 18:48
INR 1.33 12/02/23 18:48
Physical Exam
-
HEENT: No pallor, cyanosis, or jaundice. Throat clear.-ecchymosis on forehead-old
NECK: Supple. No JVD.
RESPIRATORY: Lungs clear to auscultation.
CVS: S1, S2 normal. RRR.� No murmur, rub or gallop.
ABDOMEN: Soft, non-tender. No distension. BS+/normal.
EXTREMITIES: strength equal, no calf pain with palpation-mild ecchymosis surrounding aquacel with drainage,
slightly firm, NT
ANIMAL TAXONOMIST: AOx3. No focal deficits. pilot control operator helper grossly intact
[2023-12-04 11:56] VITALS: BP 101/64; PULSE 89; O2SAT 99
--- NOTE | 2023-12-04 12:26 | W.DS.TRANS ---
DC Summary - Planer Setup Operator
-
Discharge Instructions:
Sleep Apnea Risk Low
Discharge Diagnosis/Procedures L ZOYA Dr. Wang 12/02/23
Diet As tolerated
Activity With assistance,With Walker
Driving Restrictions No driving
Bathing Restrictions OK to Shower
Blood Work CBC,CMP twice weekly x 2 weeks-results to
[facility] Wang, PCP Dr. Leida Cisse and
hepatology
Other Services VN,PT,OT
Instructions:
Stand-Alone Forms: Total Hip/Knee Replacement D/C
Changes to Home Medications: Yes
Discharge Medications:
DC Medications w/original date entered in [employer]
Bifidobacterium infantis 4 mg capsule (Align) 4 mg PO DAILY 10/30/17
albuterol sulfate 90 mcg/actuation aerosol inhaler 2 puff inhalation R QID PRN sob 10/30/17
fluticasone furoate 200 mcg-vilanterol 25 mcg/dose inhalation powder (Breo Ellipta) 1 ea inhalation DAILY 10/30/17
fluticasone propionate 50 mcg/actuation nasal spray,suspension 2 spray intranasal DAILYPRN PRN allergies 10/30/17
fexofenadine-pseudoephedrine ER 180 mg-240 mg tablet,ext.release 24 hr (Tereza-D 24 Hour) 1 ea PO QPM 05/03/19
dextromethorphan-guaifenesin 30 mg-600 mg tablet extended [id number] hr (Mucinex DM) 1 ea PO DAILY 11/02/21
pantoprazole 40 mg tablet,delayed release 40 mg PO QPM 11/02/21
azelastine 137 mcg (0.1 %) nasal spray 2 spray intranasal DAILY 11/26/23
fluoxetine 40 mg capsule 40 mg PO DAILY 11/26/23
furosemide 20 mg tablet 20 mg PO DAILY 11/26/23
gabapentin 400 mg capsule 400 mg PO HS 11/26/23
apixaban 2.5 mg tablet (Eliquis) 2.5 mg PO BID Blood clot prevention #30 tabs 12/04/23
aspirin 81 mg tablet,delayed release 81 mg PO BID #1 tab 12/04/23
dexamethasone 4 mg tablet 4 mg PO BID inflammation #6 tabs 12/04/23
docusate sodium 100 mg capsule (Colace) 100 mg PO BID stool softner #1 cap 12/04/23
ergocalciferol (vitamin D2) 50 mcg (2,000 unit) tablet 50 mcg PO WEEKLY vitamin D deficiency #20 tabs 12/04/23
ferrous sulfate 325 mg (65 mg iron) tablet 325 mg PO BID iron deficiency anemia #1 tab 12/04/23
magnesium hydroxide 400 mg/5 mL oral suspension (Milk of Magnesia) 30 ml PO HS PRN Constipation #1 mL 12/04/23
sennosides 8.6 mg tablet (Senokot) 17.2 mg (2 x 8.6 mg) PO BID laxative #2 tabs 12/04/23
tramadol 50 mg tablet 50 mg PO Q6H PRN 1 tab moderate pain, 2 if severe #30 tabs 12/04/23
Home Medication Changes
apixaban 2.5 mg tablet (Eliquis) 2.5 mg PO BID Blood clot prevention #30 tabs 12/04/23
aspirin 81 mg tablet,delayed release 81 mg PO BID #1 tab 12/04/23
dexamethasone 4 mg tablet 4 mg PO BID inflammation #6 tabs 12/04/23
ergocalciferol (vitamin D2) 50 mcg (2,000 unit) tablet 50 mcg PO WEEKLY vitamin D deficiency #20 tabs 12/04/23
ferrous sulfate 325 mg (65 mg iron) tablet 325 mg PO BID iron deficiency anemia #1 tab 12/04/23
Pending Results: No
[2023-12-04] MEDS: FERRLECIT 110 MG IV (13:00)
[2023-12-04] MEDS: CYANOCOBALAMIN 1000 MCG IM (13:10)
[2023-12-04 15:16] VITALS: BP 139/71
== END 2023-12-04 15:55 | disposition home health service (06) ==
LOC: SDS 11:12
PROVIDERS: Physician Assistant Medical; ATTENDING PHYSICIAN Orthopaedic Surgery; CONSULT PHYSICIAN Internal Medicine; FAMILY PHYSICIAN Family Medicine
DX: M16.12 Unilateral primary osteoarthritis, left hip (principal); J45.909 Unspecified asthma, uncomplicated; F41.1 Generalized anxiety disorder; R00.0 Tachycardia, unspecified; K21.9 Gastro-esophageal reflux disease without esophagitis; R79.89 Other specified abnormal findings of blood chemistry; R74.01 Elevation of levels of liver transaminase levels
CPT/HCPCS: 27130; 71275; 73502; 76000; 80053; 81003; 81015; 82306; 82607; 82728; 83036; 83540; 83550; 83735; 84100; 84443; 84484; 85014; 85018; 85027; 85379; 85610; 85730; 86850; 86900; 86901; 87070; 87086; 93005; 93306; 93970; 94640; 97110; 97116; 97161; 97166; C1713; C1776; J2916; Q9967

== ENCOUNTER → 2024-11-25 13:22 | Outpatient (REF) | payer OTHER, SELFPAY | LOC: HWWDC 13:22 | PROVIDERS: ATTENDING PHYSICIAN Family Medicine | DX: Z12.31 Encounter for screening mammogram for malignant neoplasm of breast (principal); M81.0 Age-related osteoporosis without current pathological fracture | CPT/HCPCS: 77063; 77067; 77080 ==

== ENCOUNTER 2025-01-07 12:36 | Emergency (ER) | payer OTHER, SELFPAY ==
[2025-01-07 12:37] VITALS: BP 144/78
--- NOTE | 2025-01-07 13:30 | EDRN ---
Pt was getting into shower on Friday, put one foot on mat in shower and when placed other foot on mat, falling backwards and landing on her back. Pt did not hit head. No LOC. No blood thinners. Pt has pain in her L side post fall. Pt came in as pain
has increased.
[2025-01-07 13:32] VITALS: BMI 23.8
[2025-01-07 13:37] VITALS: BP 141/73
--- NOTE | 2025-01-07 16:02 | ED.GENMED ---
History of Present Illness
General
Chief Complaint: Fall
Source: patient
Exam Limitations: none
Time Seen by Provider: 01/07/25 15:43
Nursing documentation reviewed up to this point in time: agreed with
History of Present Illness
History of Present Illness:
74-year-old female with past medical history of DVT, hypertension, presenting to the emergency department today after a slip and fall hitting her right upper back denies any head strike no loss of consciousness denies taking any blood thinners
previously was on Eliquis but has not been taking this recently. Has had some ongoing pain to the right upper back since. Denies any chest pain denies abdominal pain nausea vomiting. Denies numbness weakness.
Past History
Past History
ED Past Medical History: Asthma, HTN, Hypercholesterolemia and Psychiatric (Anxiety )
ED Past Surgical History: None
Social History
Tobacco: Non-smoker
Personal: Single
Living: alone
Review of Systems
Review of Systems
Allergies reviewed?: Yes
All Other Systems: ROS reviewed and negative except as documented in HPI and ROS
Phy Exam
Physical Exam
Physical Exam:
GENERAL: Alert , in no apparent distress
EYE: pupils equal and reactive
NECK: Supple, no significant adenopathy.
ENT: o/p clr, mmm.
CARDIAC: Regular rate and rhythm .
LUNGS: Right upper back mild tenderness palpation no overlying skin changes clear breath sounds bilaterally, no acute respiratory distress, no wheezes/rales/rhonchi
ABDOMEN: Soft, without focal tenderness, no r/g, no cvat
NEUROLOGICAL: Alert and oriented, no focal neuro deficits
SKIN: Warm and dry, skin intact.
MUSCULOSKELETAL: No edema, well perfused.
PSYCH: Normal and appropriate interaction.
Course
Orders/Labs/Results
Orders:
Orders
01/07/25 15:55
Acetaminophen [Tylenol] 1,000 mg PO NOW STA
CR Ribs-right 3 Vw W/pa Chest* Urgent
Comment:
Reason For Exam: right posterior rib pain after fall
Vital Signs
Initial and Last Documented VS:
Initial Vital Signs
Temp Pulse Resp BP Pulse Ox
98.2 F 102 18 144/78 97
01/07/25 12:37 01/07/25 12:37 01/07/25 12:37 01/07/25 12:37 01/07/25 12:37
Last Documented Vital Signs
Temp Pulse Resp BP Pulse Ox
98.2 F 90 16 141/73 98
01/07/25 12:37 01/07/25 13:37 01/07/25 13:37 01/07/25 13:37 01/07/25 16:03
MDM/Problems Addressed
MDM/Problems Addressed:
74-year-old female presenting to the emergency department today with right upper back discomfort after a fall 5 days ago while in the shower. Ongoing pain to the area. Increased with deep breaths. Somewhat reproducible to palpation and with
movements of the right upper extremity. X-ray without signs of complications. Patient here in no distress. Stable for outpatient management return precautions given.
*Pulse Oximetry
SaO2: 98
Oxygen Mode of Delivery: Room air
Patient hypoxic: no (98)
*Critical Care Note
Total Time (30-74mins, 75-104mins- exclusive of procedures): Not Applicable
ED Attending Note
-
Portions of this chart may have been created with voice recognition software.� Occasional wrong word or��sound alike� substitutions may have occurred due to the inherent limitations of voice recognition software.
Discharge Plan
Departure
Patient Disposition: Home (Routine Discharge)
Date of Disposition: 01/07/25
Time of Disposition: 18:09
Patient with high blood pressure during this ER visit?: No
Condition: Good
Covid-19: Not Applicable
Discharge Problem:
Rib contusion
Instructions: Preventing falls in adults
Prescriptions:
No Action
albuterol sulfate 1 PUFF HFA aerosol inhaler
2 puff inhalation R QID PRN (Reason: sob)
fluticasone propionate 1 SPRAY spray,suspension
2 spray intranasal DAILYPRN PRN (Reason: allergies)
Align (B.infantis) 4 MG capsule
4 mg PO DAILY
fluticasone furoate-vilanterol [Breo Ellipta] 1 EACH blister with device
1 ea inhalation DAILY
fexofenadine-pseudoephedrine [Tereza-D 24 Hour] 1 EACH tablet extended release 24 hr
1 ea PO QPM
pantoprazole 40 MG tablet,delayed release (DR/EC)
40 mg PO QPM
Mucinex DM 1 EACH tablet extended release 12 hr
1 ea PO DAILY
fluoxetine 40 mg Capsule
40 mg PO DAILY
gabapentin 400 mg Capsule
400 mg PO HS
azelastine 137 mcg (0.1 %) [place],Non-Aerosol
2 spray INTRANASAL DAILY
furosemide 20 mg Tablet
20 mg PO DAILY
Eliquis 2.5 mg tablet
2.5 mg PO BID Qty: 30 0RF
aspirin 81 mg tablet,delayed release (DR/EC)
81 mg PO BID Qty: 1 0RF
Rx Instructions:
*BEGIN WHEN ELIQUIS IS D/C*
ergocalciferol (vitamin D2) 50 mcg (2,000 unit) tablet
50 mcg PO WEEKLY Qty: 20 6RF
ferrous sulfate 325 mg (65 mg iron) tablet
325 mg PO BID Qty: 1 0RF
Rx Instructions:
OTC
take with stool softner/Colace and Senna if needed
dexamethasone 4 mg tablet
4 mg PO BID Qty: 6 0RF
Rx Instructions:
take with food
post-op use only
docusate sodium [Colace] 100 mg capsule
100 mg PO BID Qty: 1 0RF
sennosides [Senokot] 8.6 mg tablet
17.2 mg PO BID Qty: 2 0RF
tramadol 50 mg tablet
50 mg PO Q6H PRN (Reason: 1 tab moderate pain, 2 if severe) Qty: 30 0RF
Rx Instructions:
ongoing therapy
magnesium hydroxide [Milk of Magnesia] 400 mg/5 mL suspension
30 ml PO HS PRN (Reason: Constipation) Qty: 1 0RF
mecobalamin (vitamin B12) 1,000 mcg tablet,chewable
1,000 mcg PO DAILY 30 Days Qty: 30 0RF
Referrals:
Leida Cisse DO [Family Provider, Family Practice]
Activity Restrictions/Additional Instructions:
You came to the emergency department today with concerns of ongoing mid discomfort. Here no signs of complication on x-ray. Please take Tylenol as needed for pain. Return for any worsening, new or concerning symptoms.
Interventions
Interventions:
*Risk Screen - Suicide Last Done: 01/07/25 12:37
*General Assessment Last Done: 01/07/25 13:32
*Neglect/Abuse Screening Last Done: 01/07/25 12:37
*ED- Fall Risk Assessment Last Done: 01/07/25 13:32
*ED COVID-19 Vaccine History Last Done: 01/07/25 13:32
ED-Musculoskeletal Assessment Last Done: 01/07/25 13:32
ED- Neurological Assessment Last Done: 01/07/25 13:32
ED-Skin Assessment Last Done: 01/07/25 13:32
Discharge Date and Time
Print Language: [place]
[2025-01-07] MEDS: TYLENOL 1000 MG PO (17:45)
== END 2025-01-07 19:06 | disposition home or self-care (01) ==
LOC: EMR 12:36
PROVIDERS: EMERGENCY PHYSICIAN Emergency Medicine; FAMILY PHYSICIAN Family Medicine
DX: S20.211A Contusion of right front wall of thorax, initial encounter (principal); W18.2XXA Fall in (into) shower or empty bathtub, initial encounter; I10 Essential (primary) hypertension; Z86.718 Personal history of other venous thrombosis and embolism
CPT/HCPCS: 99283; 71101